=== PATIENT | female | born 1940 | race Caucasian/White ===

== ENCOUNTER → 2017-10-16 13:47 | Outpatient (CLI) | payer MEDICARE, SELFPAY ==
[2017-10-16 17:07] LABS: International Normalized Ratio 1.9; Prothrombin Time (Protime)PT. 21.4 SECONDS (11.7-14.9)
== END ==
PROVIDERS: Family Provider Internal Medicine; PCP Internal Medicine; Visit Provider Internal Medicine
DX: I82.409 Acute embolism and thrombosis of unspecified deep veins of unspecified lower extremity (principal)
CPT/HCPCS: 36415; 85610

== ENCOUNTER → 2017-10-22 12:46 | Outpatient (CLI) | payer MEDICARE, SELFPAY ==
[2017-10-22 12:51] LABS: Bacteria 0 SEEN /hpf (None Seen); Mucous, Urine 0 SEEN /hpf (<or=2+); Red Blood Cells-Urine 0 SEEN /hpf (0-5); Squamous Epithelial Cells - UA 0 SEEN /hpf (5-10); White Blood Cells 0 SEEN /hpf (0-5)
[2017-10-22 14:24] LABS: Color, Urine Yellow (Yellow); Glucose, Dipstick Normal (Normal); Ketone-Dipstick Negative (Negative); Leukocyte Esterase-Dipstick 25 /ul (Negative); Nitrite-Dipstick Negative (Negative); Occult Blood-Urine Negative /ul (Negative); Protein-Dipstick 15 mg/dl (Negative); Urine Bilirubin Dipstick Negative (Negative); Urine Clarity Clear (Clear); Urine Urobilinogen Normal (Normal); Urine pH 6.5 (5.0 - 8.0)
== END ==
PROVIDERS: Family Provider Internal Medicine; PCP Internal Medicine; Visit Provider Nurse Practitioner Family
DX: R30.0 Dysuria (principal)
CPT/HCPCS: 81001; 87086; 87088

== ENCOUNTER → 2017-10-22 15:31 | Outpatient (CLI) | payer MEDICARE, SELFPAY ==
[2017-10-22 13:30] VITALS: BP 178/55; BMI 27.3
--- NOTE | 2017-10-22 15:34 | EKG12_ITS ---
Test Reason : MEDICATION Blood Pressure : / mmHG Vent. Rate : 066 BPM Atrial Rate : 066 BPM P-R Int : 178 ms QRS Dur : 088 ms QT Int : 392 ms P-R-T Axes : 042 050 059 degrees QTc Int : 410 ms Normal sinus rhythm Low voltage QRS Borderline ECG Confirmed by SHYAM DUNLAP, CR ([id number]), managing editor JEANETH DOBBS ([id number] on 10/28/2017 8:30:26 AM Referred By: Mirian Troy Confirmed By:CR HOWE MD
== END ==
PROVIDERS: Family Provider Internal Medicine; PCP Internal Medicine; Visit Provider Internal Medicine
DX: R07.9 Chest pain, unspecified (principal)
CPT/HCPCS: 81001; 87086; 93005

== ENCOUNTER → 2017-10-28 13:53 | Outpatient (CLI) | payer MEDICARE, SELFPAY ==
[2017-10-22 13:30] VITALS: BP 178/55; BMI 27.3
[2017-10-28 15:34] LABS: International Normalized Ratio 2.5
[2017-10-28 15:40] LABS: Cholesterol 220 mg/dL (200); High Density Lipoprotein 60 mg/dL; Triglycerides 167 mg/dL; Very Low Density Lipoprotein 33 mg/dL (5-40)
== END ==
PROVIDERS: Family Provider Internal Medicine; PCP Internal Medicine; Visit Provider Internal Medicine
DX: I82.409 Acute embolism and thrombosis of unspecified deep veins of unspecified lower extremity (principal); C56.9 Malignant neoplasm of unspecified ovary; I10 Essential (primary) hypertension; E78.5 Hyperlipidemia, unspecified
CPT/HCPCS: 36415; 80061; 85610

== ENCOUNTER 2017-11-10 10:32 | Outpatient (RCR) | payer MEDICARE, SELFPAY ==
[2017-11-10 12:37] LABS: International Normalized Ratio 2.9
== END 2017-11-10 15:00 | disposition home or self-care (01) ==
LOC: MTLAB 10:32
PROVIDERS: Family Provider Internal Medicine; PCP Internal Medicine; Visit Provider Internal Medicine
DX: I82.409 Acute embolism and thrombosis of unspecified deep veins of unspecified lower extremity (principal); C56.9 Malignant neoplasm of unspecified ovary
CPT/HCPCS: 36415; 85610

== ENCOUNTER → 2017-11-18 12:57 | Outpatient (CLI) | payer MEDICARE, SELFPAY ==
[2017-11-18 14:30] LABS: Absolute Lymphocyte Count 1.32 X10^3/ul (0.83-4.51); Absolute Neutrophil Count 4.4 X10^3/uL (2.0-7.7); Basophil# 0.03 X10^3/uL; Basophil% 0.4 % (0-1); Eosinophil# 0.16 X10^3/uL; Eosinophils% 2.4 % (0-5); Hematocrit 35.9 % (37-47); Hemoglobin 11.7 g/dl (12.0-15.0); Lymphocyte # 1.32 X10^3/ul (4.0); Lymphocyte % 19.7 % (19-41); Mean Corp Hgb Conc 32.6 g/gl (32-36); Mean Corpuscular Hgb 29.7 pg (27.0-32.0); Mean Corpuscular Volume 91.1 fL (81-99); Mean Platelet Vol. 9.8 fl (6.2-12.0); Monocyte# 0.75 X10^3/uL; Monocyte% 11.2 % (0-10); Neutrophil # 4.43 X10^3/uL (2.7-7.7); Neutrophil % 66.2 % (47-70); Platelet Count 236 K/mm3 (150-450); RBC Distribution Width CV 13.7 % (11.6-14.6); RBC Distribution Width SD 45.5 fl (35.1-43.9); Red Blood Count 3.94 M/mm3 (4.2-5.4); White Blood Count 6.7 K/mm3 (4.4-11.0)
[2017-11-18 14:35] LABS: POSITIVE COUNT NO; POSITIVE DIFFERENTIAL NO; POSITIVE MORPHOLOGY NO
[2017-11-18 14:40] LABS: International Normalized Ratio 1.5; Prothrombin Time (Protime)PT. 17.3 SECONDS (11.7-14.9)
[2017-11-18 14:47] LABS: AST(SGOT) 36 U/L (15-37); Alanine Aminotransfer ALT/SGPT 26 U/L (13-56); Albumin, Serum 3.5 g/dL (3.2-5.0); Alkaline Phosphatase 88 U/L (45-117); Anion Gap 6 (5-15); BUN 20 mg/dL (7-18); Bilirubin, Direct 0.07 mg/dL (0.00-0.30); Chloride 99 mmol/L (98-107); Creatinine, Serum 1.52 mg/dL (0.55-1.02); EST Glomerular Filtration Rate 35 mL/min (>60); Est Glom Filt Rate - Afr Amer 43 mL/min (>60); Globulin 4.7 g/dL (2.2-4.2); Potassium 4.6 mmol/L (3.5-5.1); Protein, Total 8.2 g/dL (6.4-8.2); Sodium Level 133 mmol/L (136-145)
== END ==
PROVIDERS: Family Provider Internal Medicine; PCP Internal Medicine; Visit Provider Internal Medicine
DX: C56.1 Malignant neoplasm of right ovary (principal); I82.409 Acute embolism and thrombosis of unspecified deep veins of unspecified lower extremity
CPT/HCPCS: 36415; 80051; 80076; 82565; 84520; 85025; 85610; 86304

== ENCOUNTER 2017-12-01 12:23 | Outpatient (RCR) | payer MEDICARE, MEDICAID, SELFPAY ==
[2017-12-01 14:19] LABS: International Normalized Ratio 2.3; Prothrombin Time (Protime)PT. 25.1 SECONDS (11.7-14.9)
== END 2017-12-01 13:00 | disposition home or self-care (01) ==
LOC: MTLAB 12:23
PROVIDERS: Family Provider Internal Medicine; PCP Internal Medicine; Visit Provider Internal Medicine
DX: I82.409 Acute embolism and thrombosis of unspecified deep veins of unspecified lower extremity (principal); C56.9 Malignant neoplasm of unspecified ovary
CPT/HCPCS: 36415; 85610